=== PATIENT | male | born 1995 | race Caucasian/White ===

== ENCOUNTER → 2024-03-22 09:22 | Outpatient (BNVA) | payer BC, SELFPAY | PROVIDERS: PCP Nurse Practitioner Family | DX: E11.621 Type 2 diabetes mellitus with foot ulcer (principal); L97.509 Non-pressure chronic ulcer of other part of unspecified foot with unspecified severity; R52 Pain, unspecified | CPT/HCPCS: 87070; 87077; 87176; 87186; 87205 ==

== ENCOUNTER 2024-03-28 12:04 | Outpatient (CLI) | payer BC, SELFPAY ==
--- NOTE | 2024-03-28 12:23 | XR_ITS ---
WS: [id number] Exam: XR foot LT min 3V* [id number] Date/Time of Exam: 03/28/2024 12:24 PM Reason For Exam: non-healing ulcer of left great toe; rule out osteomyelitis No fracture or bone destruction. Soft tissue swelling of the great toe. The joints are preserved. No soft tissue foreign bodies. XR/XR foot LT min 3V* [id number] IMPRESSION: 1. Soft tissue swelling of the great toe. No fracture or bone destruction.
== END 2024-03-28 12:05 | disposition home or self-care (01) ==
LOC: RAD 12:10
PROVIDERS: PCP Nurse Practitioner Family
DX: E11.621 Type 2 diabetes mellitus with foot ulcer (principal); L97.509 Non-pressure chronic ulcer of other part of unspecified foot with unspecified severity; R93.6 Abnormal findings on diagnostic imaging of limbs
CPT/HCPCS: 73630